=== PATIENT | female | born 1955 | race Caucasian/White ===

== ENCOUNTER 2017-07-28 03:15 | Emergency (ER) | payer OTHER ==
[2017-07-28] MEDS ORDERED: Fentanyl 100 MCG/2 ML VIAL ONE (04:02)
[2017-07-28] MEDS ORDERED: Ondansetron HCl/PF 4 MG/2 ML Vial ONE (04:22)
--- NOTE | 2017-07-28 08:01 | ULT ---
PRELIMINARY REPORT/[facility]/EMERGENCY AFTER HOURS PROCEDURE: EXAM: US Abdomen Limited, Right Upper Quadrant CLINICAL HISTORY: 62 years old, female; Pain; Other: Ruq pain TECHNIQUE: Real-time ultrasound of the right upper quadrant with image documentation. COMPARISON: No relevant prior studies available. FINDINGS: Liver: Mild hepatomegaly and mild heterogeneity No mass. No intrahepatic bile duct dilation. Gallbladder: Unremarkable. No gallstones. Common bile duct: No stones. No dilation. Pancreas: Unremarkable as visualized. Right kidney:No stones. No solid mass. No hydronephrosis. IMPRESSION: Mild hepatomegaly and heterogeneous liver No sonographic evidence for gallstones Thank you for allowing us to participate in the care of your patient. Dictated and Authenticated by: Jose Tidwell MD 07/28/2017 5:03 AM Central Time ([place] & [place]) FINAL REPORT GALLBLADDER ULTRASOUND: HISTORY: Right upper quadrant pain x 2 days. COMPARISON: None. TECHNIQUE: Utilizing a multihertz transducer, supervisor drapery hanging imaging of the right upper quadrant is performed in th e longitudinal and transverse plane. FINDINGS: This report is in agreement with the preliminary report by [facility]. There is hepatomegaly and increased echogenicity of the liver which may be due to hepatic steatosis or hepatocellular disease. A trace amount of pericholecystic fluid is present. Gallbladder wall does not appear to be thickened . There is no sonographic evidence of cholelithiasis. However, supervisor drapery hanging does report a positive M urphy's sign. If there is still concern for possible acalculous cholecystitis, consider nonemergent HIDA scan. CODE T POS: PPP
== END 2017-07-28 05:23 | disposition home or self-care (01) ==
LOC: ERS 03:15
DX: R10.11 Right upper quadrant pain (principal); F17.210 Nicotine dependence, cigarettes, uncomplicated; Z71.6 Tobacco abuse counseling
CPT/HCPCS: 76705; 83690; 96374; 96375; 99406; J2405; J3010